=== PATIENT | male | born 1970 | race Caucasian/White ===

== ENCOUNTER → 2020-03-05 | Outpatient (CLI) | payer BC, OTHER ==
[~2020-03-05] MED LIST: OMEP40CA97 PO
--- NOTE | 2020-03-25 11:33 | REP ---
COOKIE SWALLOW: The procedure was performed under the direct supervision of Dr. Bolanos. The procedure was performed with Shonna Ladd from speech pathology present. 5cc aliquots of thin, pudding, mixed fruit, soft and solid consistency barium as well as a barium pill were administered. There is no evidence of penetration or aspiration. A detailed report of this examination will be provided by speech fluoroscopy. 1 minute of fluoroscopy time was utilized for this procedure. ROSITA
== END ==
LOC: M ST 13:03
PROVIDERS: ATTEND Specialist
DX: R13.10 Dysphagia, unspecified (principal)

== ENCOUNTER → 2020-03-21 | Outpatient (CLI) | payer BC, OTHER ==
[~2020-03-21] MED LIST changes: +E-Z-GAS II EFFERVESCENT PACKET (SODIUM BICARB./CITRIC ACID/SIMETHICONE) As Ordered ONE; +E-Z-HD 98% w/w 340GM SUSP BTL As Ordered ONE; +E-Z-PAQUE 96% w/w SUSP 176GM BTL As Ordered ONE
--- NOTE | 2020-03-27 09:29 | REP ---
ESOPHAGRAM This procedure was performed by FELIBERTO Lion, under the direct supervision of Dr. Bolanos. The images were reviewed with Dr. Bolanos prior to dictation. A single view PA chest x-ray is submitted as a scout professional sports film. The superior mediastinal structures are midline. The heart size is within normal limits, and the lungs appear clear. Liquid barium and gas-producing granules were given in the erect position, as well as liquid barium in the prone oblique positions in order to perform a double-contrast esophagram examination. The oral and pharyngeal stages of deglutition were unremarkable. Esophageal transport is prompt and efficient, and there is no esophagitis, stricture, or mucosal ring. There is a small hiatal hernia. No gastroesophageal reflux was demonstrated during this examination. IMPRESSION: 1. Small hiatal hernia. 0.2 minutes of fluoroscopy time was utilized for this procedure. This has been dictated by FELIBERTO Lion with Dr. Bolanos. [facility]
== END ==
LOC: M RAD 08:30
PROVIDERS: ATTEND Physician Assistant Medical
DX: K21.9 Gastro-esophageal reflux disease without esophagitis (principal); R13.10 Dysphagia, unspecified

== ENCOUNTER → 2020-04-24 | Outpatient (CLI) | payer BC, OTHER ==
[~2020-04-24] MED LIST changes: -E-Z-GAS II EFFERVESCENT PACKET (SODIUM BICARB./CITRIC ACID/SIMETHICONE) As Ordered ONE; -E-Z-HD 98% w/w 340GM SUSP BTL As Ordered ONE; -E-Z-PAQUE 96% w/w SUSP 176GM BTL As Ordered ONE
== END ==
LOC: M LABSMTC 10:27
PROVIDERS: ATTEND Anesthesiology
DX: Z11.59 Encounter for screening for other viral diseases (principal)

== ENCOUNTER 2020-04-29 11:57 | Day surgery (SDC) | payer BC, OTHER ==
[~2020-04-29] VITALS: Ht 170.2 cm; Wt 83.5 kg
[~2020-04-29 11:57] MED LIST changes: +LIDOCAINE 2% 100MG/5ML SDV (FOR ANES.) As Ordered ONE; +NS 1,000 ML IV ONE; +propofoL 200 MG/20 ML VIAL As Ordered ONE
--- NOTE | 2020-04-29 14:09 | ROOR ---
Patient Name: Gildardo Guevara Procedure Date: 04/29/2020 1:49 PM Date of : 1970 Age: 49 Room: [facility] Gender: Male Note Status: Finalized Procedure: Upper GI endoscopy Indications: Dysphagia, Foreign body in the esophagus Providers: Brodie RAMÍREZ MD Referring MD: ASUNCION OAKES MD Requesting Provider: Medicines: Monitored Anesthesia Care Complications: No immediate complications. Procedure: Pre-Anesthesia Assessment: - The heart rate, respiratory rate, oxygen saturations, blood pressure, adequacy of pulmonary ventilation, and response to care were monitored throughout the procedure. The Endoscope was introduced through the mouth, and advanced to the second part of duodenum. The upper GI endoscopy was accomplished without difficulty. The patient tolerated the procedure well. Findings: A widely patent Schatzki ring was found at the gastroesophageal junction. A TTS dilator was passed through the scope. Dilation with an 18-19-20 mm x 5.5 cm CRE balloon dilator was performed to 19 mm. The dilation site was examined and showed complete resolution of luminal narrowing. The exam of the esophagus was otherwise normal. Several biopsies were obtained in the upper third of the esophagus, in the middle third of the esophagus and in the lower third of the esophagus with cold forceps for evaluation of eosinophilic esophagitis. The entire examined stomach was normal. The examined duodenum was normal. Impression: - Esophagus: Widely patent Schatzki ring. Dilated. - Normal stomach. - Normal examined duodenum. - Several biopsies were obtained in the upper third of the esophagus, in the middle third of the esophagus and in the lower third of the esophagus. Recommendation: - Observe patient's clinical course. - Telephone endoscopist for pathology results in 2 weeks. - Use Prilosec (omeprazole) 40 mg PO daily. Brodie Ramírez MD Brodie RAMÍREZ MD 04/29/2020 2:09:13 PM Electronically signed by Brodie RAMÍREZ MD Number of Addenda: 0 Note Initiated On: 04/29/2020 1:49 PM Estimated Blood Loss: Estimated blood loss: none.
--- NOTE | 2020-04-29 14:25 | ROOR ---
Patient Name: Gildardo Guevara Procedure Date: 04/29/2020 1:50 PM Date of : 1970 Age: 49 Room: [facility] Gender: Male Note Status: Finalized Procedure: Colonoscopy Indications: Screening for colorectal malignant neoplasm Providers: Brodie RAMÍREZ MD Referring MD: ASUNCION OAKES MD Requesting Provider: Medicines: Monitored Anesthesia Care Complications: No immediate complications. Procedure: Pre-Anesthesia Assessment: - The heart rate, respiratory rate, oxygen saturations, blood pressure, adequacy of pulmonary ventilation, and response to care were monitored throughout the procedure. The Colonoscope was introduced through the anus and advanced to the terminal ileum, with identification of the appendiceal orifice and IC valve. The colonoscopy was performed without difficulty. The patient tolerated the procedure well. The quality of the bowel preparation was good. Findings: The perianal and digital rectal examinations were normal. Three sessile polyps were found in the sigmoid colon and splenic flexure. The polyps were 3 to 6 mm in size. These polyps were removed with a cold snare. Resection and retrieval were complete. Mild sigmoid diverticulosis and moderate internal hemorrhoids. The exam was otherwise without abnormality. Impression: - Three 3 to 6 mm polyps in the sigmoid colon and at the splenic flexure, removed with a cold snare. Resected and retrieved. - Mild sigmoid diverticulosis and moderate internal hemorrhoids. - The colon examination was otherwise normal. Recommendation: - Repeat colonoscopy in 3 - 5 years for surveillance. - Await pathology results. - Telephone endoscopist for pathology results in 2 weeks. Brodie Ramírez MD Brodie RAMÍREZ MD 04/29/2020 2:25:02 PM Electronically signed by Brodie RAMÍREZ MD Number of Addenda: 0 Note Initiated On: 04/29/2020 1:50 PM Estimated Blood Loss: Estimated blood loss: none.
[2020-04-29 15:00] VITALS: BP 127/88
== END 2020-04-29 15:14 | disposition home or self-care (01) ==
LOC: M OPP 11:57
PROVIDERS: ATTEND Internal Medicine Gastroenterology
DX: Z12.11 Encounter for screening for malignant neoplasm of colon (principal); K63.5 Polyp of colon; K57.30 Diverticulosis of large intestine without perforation or abscess without bleeding; K64.8 Other hemorrhoids; K21.9 Gastro-esophageal reflux disease without esophagitis; K22.2 Esophageal obstruction; R13.10 Dysphagia, unspecified; Z88.0 Allergy status to penicillin

== ENCOUNTER → 2020-07-30 | Outpatient (CLI) | payer BC, OTHER ==
[~2020-07-30] MED LIST changes: -LIDOCAINE 2% 100MG/5ML SDV (FOR ANES.) As Ordered ONE; -NS 1,000 ML IV ONE; -propofoL 200 MG/20 ML VIAL As Ordered ONE
--- NOTE | 2020-07-30 13:19 | REP ---
INDICATION: DYSPHAGIA. COMPARISON: None. TECHNIQUE: High-resolution bilateral thyroid sonography. FINDINGS: Thyroid isthmus is 0.4 cm in thickness. Right lobe dimensions by ultrasound of 4.3 x 2.2 x 1.2 cm. Left lobe dimensions are 4.1 x 1.8 x 1.2 cm. There is a subtle hypoechoic solid nodule in the inferior aspect of the right lobe measuring 0.9 x 0.7 x 0.6 cm. There are 2 or 3 echogenic foci in the nodule question microcalcifications. There is a 0.3 cm cystic nodule in the left lobe. No other thyroid nodule is seen. There are multiple bilateral neck lymph nodes none of which appear enlarged by sonographic criteria. The largest is 8 mm by 7 mm x 3 mm. This is on the right. IMPRESSION: 9 mm hypoechoic nodule possibly containing microcalcifications in the lower pole the right thyroid gland. Recommend ultrasound-guided FNA. Multiple normal-sized cervical lymph nodes seen. <Electronically signed by Dieudonne Dunlap > 07/30/20 [id number]
== END ==
LOC: M RAD 07:56
PROVIDERS: ATTEND Specialist
DX: R13.10 Dysphagia, unspecified (principal)

== ENCOUNTER → 2020-09-24 | Outpatient (CLI) | payer BC, OTHER ==
[~2020-09-24] MED LIST changes: +LIDOCAINE 1% MDV 20ML VIAL As Ordered ONE; +SODIUM BICARBONATE 8.4% INJ 50MEQ 50 ML VIAL As Ordered ONE
[2020-09-24 11:52] VITALS: BP 160/97
--- NOTE | 2020-09-24 17:42 | REP ---
INDICATION: RT THYROID NODULE. COMPARISON: None. TECHNIQUE: The procedure was performed by FELIBERTO Lion, under the direct supervision of Dr. Bolanos. The risks and benefits of the procedure were explained to the patient and an informed consent was obtained both verbally and written. Directly prior to the start of the procedure a formal time-out was completed in the procedure room. The right thyroid nodule was localized using ultrasound guidance. The skin was prepped and draped in a sterile fashion. Five mL of buffered lidocaine was used as a local anesthetic. Using ultrasound guidance a 4 fine needle aspirations were obtained using 25 gauge needles. FINDINGS: The patient tolerated the procedure well and there were no immediate complications. After the appropriate amount of monitored convalescence the patient was discharged from the department. IMPRESSION: Ultrasound-guided right thyroid nodule fine needle aspiration. <Electronically signed by Elvi Peace > 09/24/20 [id number] <Electronically signed by Alexandro Bolanos > 09/24/20 [id number]
== END ==
LOC: M IRPRO 11:40
PROVIDERS: ATTEND Specialist
DX: E04.1 Nontoxic single thyroid nodule (principal)

== ENCOUNTER → 2024-09-28 | Outpatient (CLI) | payer BC, OTHER ==
[~2024-09-28] MED LIST changes: -LIDOCAINE 1% MDV 20ML VIAL As Ordered ONE; +OMEP40CA4 PO; -OMEP40CA97 PO; -SODIUM BICARBONATE 8.4% INJ 50MEQ 50 ML VIAL As Ordered ONE
[2024-09-28 16:22] LABS: BASO % 0.5 % (0.0-1.0); EOS # 0.2 10^3/uL (0.0-0.5); HEMATOCRIT 50.1 % (42.0-52.0); HEMOGLOBIN 17.2 g/dl (13.5-17.5); LYMPH # 2.5 10^3/uL (1.5-5.0); LYMPH % 34.3 % (24.0-44.0); MEAN CORPUSCULAR HEMOGLOBIN 28.8 pg (27.0-33.0); MEAN CORPUSCULAR HGB CONC 34.3 g/dl (32.0-36.5); MEAN CORPUSCULAR VOLUME 83.8 fl (80.0-96.0); MONO # 0.4 10^3/uL (0.0-0.8); NEUTROPHILS # 4.1 10^3/uL (1.5-8.5); NEUTROPHILS % 56.1 % (36.0-66.0); PLATELET COUNT, AUTOMATED 222 10^3/uL (150-450); RED BLOOD COUNT 5.98 10^6/uL (4.30-6.10); WHITE BLOOD COUNT 7.4 10^3/uL (4.0-10.0)
[2024-09-28 16:42] LABS: LIPASE 42 U/L (12-53)
[2024-09-28 16:43] LABS: AMYLASE 80 U/L (30-118)
[2024-09-28 16:44] LABS: ALKALINE PHOSPHATASE 51 U/L (40-129); ALT/SGPT 42 U/L (7.0-40); AST/SGOT 15 U/L (<34); BILIRUBIN,TOTAL 0.7 MG/DL (0.3-1.2); BLOOD UREA NITROGEN 15 MG/DL (9-23); CALCIUM LEVEL 9.2 MG/DL (8.5-10.1); CARBON DIOXIDE LEVEL 26 MMOL/L (20-31); CHLORIDE LEVEL 107 MMOL/L (98-107); CREATININE FOR GFR 0.94 MG/DL (0.70-1.30); GLOMERULAR FILTRATION RATE > 60.0 (>56); GLUCOSE, FASTING 90 MG/DL (60-100); POTASSIUM SERUM 4.1 MMOL/L (3.5-5.1); SODIUM LEVEL 142 MMOL/L (136-145); TOTAL PROTEIN 7.3 G/DL (5.7-8.2)
== END ==
LOC: M LAB 15:46
PROVIDERS: ATTEND Physician Assistant Medical
DX: R10.13 Epigastric pain (principal)

== ENCOUNTER → 2024-10-29 | Outpatient (CLI) | payer BC ==
[~2024-10-29] MED LIST changes: +ISOVUE-370 76% 100ML VIAL ONE
== END ==
LOC: M PLAIMG 11:42
PROVIDERS: ATTEND Physician Assistant Medical
DX: R19.4 Change in bowel habit (principal); R10.13 Epigastric pain; R14.0 Abdominal distension (gaseous); K76.0 Fatty (change of) liver, not elsewhere classified; N28.1 Cyst of kidney, acquired; K57.30 Diverticulosis of large intestine without perforation or abscess without bleeding; K40.90 Unilateral inguinal hernia, without obstruction or gangrene, not specified as recurrent; M43.16 Spondylolisthesis, lumbar region
CPT/HCPCS: 74177; Q9967